=== PATIENT | female | born 1950 | race Caucasian/White ===

== ENCOUNTER → 2018-03-26 | Outpatient (CLI) | payer BC, MEDICARE ==
[~2018-03-26] MED LIST: ACET500 PO; ALPR1 PO; ASCO250CH PO; CETI5 PO; FERR325 PO; LEVSOD100 PO; OMEP20ER PO; OXYC5 PO; PROM25 PO; SENNA PO; STOMACH PILL
== END | disposition home or self-care (01) ==
LOC: LAB 09:47 → LAB FUT 03-24 08:40
DX: E78.5 Hyperlipidemia, unspecified (principal); R10.9 Unspecified abdominal pain; Z20.828 Contact with and (suspected) exposure to other viral communicable diseases
CPT/HCPCS: 87338

== ENCOUNTER 2020-12-27 07:14 | Day surgery (SDC) | payer MEDICARE, BC ==
[2021-01-07] MEDS ORDERED: CITA20 PO (09:37)
[2021-01-07] MEDS ORDERED: DICL75ER PO (09:38)
[2021-01-07] MEDS ORDERED: MELO7.5 PO (09:38)
[2021-01-07] MEDS ORDERED: LOSARTAN-HCTZ1 EAC5 PO (09:38)
[2021-01-07] MEDS ORDERED: OXYC5 PO (09:38)
[2021-01-07] MEDS ORDERED: PANT40 PO (09:39)
== END 2020-12-27 23:50 | disposition home or self-care (01) ==
LOC: MOI US 07:14
DX: C50.812 Malignant neoplasm of overlapping sites of left female breast (principal); Z17.0 Estrogen receptor positive status [ER+]
CPT/HCPCS: 19083; 77065; 88305; 88360; A4648

== ENCOUNTER 2021-01-06 07:39 | Day surgery (SDC) | payer MEDICARE, BC ==
[2021-01-07] MEDS ORDERED: CITA20 PO (09:37)
[2021-01-07] MEDS ORDERED: LOSARTAN-HCTZ1 EAC5 PO (09:38)
[2021-01-07] MEDS ORDERED: OXYC5 PO (09:38)
[2021-01-07] MEDS ORDERED: DICL75ER PO (09:38)
[2021-01-07] MEDS ORDERED: MELO7.5 PO (09:38)
[2021-01-07] MEDS ORDERED: PANT40 PO (09:39)
== END 2021-01-06 22:58 | disposition home or self-care (01) ==
LOC: MOI MAM 07:39
DX: C50.412 Malignant neoplasm of upper-outer quadrant of left female breast (principal); Z17.0 Estrogen receptor positive status [ER+]
CPT/HCPCS: 19285; 77065; A4648

== ENCOUNTER 2021-01-09 09:18 | Day surgery (SDC) | payer MEDICARE, BC ==
[~2021-01-09] VITALS: Ht 175.3 cm; Wt 105.0 kg
[~2021-01-09 09:18] MED LIST changes: +CITA20 PO; +DICL75ER PO; +LOSARTAN-HCTZ1 EAC5 PO; +MELO7.5 PO; +PANT40 PO
--- NOTE | 2021-01-09 11:01 | NUR ---
Ambulatory in Day Surgery Surgical site prepped with 2% Chlorhexidine cloth wipe. History, Chart, Medications and Allergies reviewed before start of procedure.Lungs clear T/O to Auscultation. Patient confirms NPO status and agrees with scheduled surgery. Patient reports completing Chlorhexadine shower X2 prior to admission to hospital. ALL BELONINGS PLACED UNDER THE BED.PT TOLERATED GETTING READY WITH SURGERY. PROVIDED CALM ENVIRONMENT.
--- NOTE | 2021-01-09 14:25 | NUR ---
REPORT FROM JAVAD BULLOCK RN. Dressing to procedure site clean, dry, intact with no visible drainage, swelling, erythema or bruising noted. GAVE ONE PAIN PILL AFTER TOLERATING PO INTAKE.
--- NOTE | 2021-01-09 16:24 | NUR ---
PT RECEIVED A TOTAL OF 2 PAIN PILLS AND ANTI NAUSEA MEDS. CONTINUED TO PRACTICE DBC AND WEAN OFF THE 02. Dressing to procedure site clean, dry, intact with no visible drainage, swelling, erythema or bruising noted. Discharge instructions reviewed with patient. Patient verbalizes understanding. Copy given to patient to take home. Patient States Post-Procedure ride home has been arranged. Discharged via wheelchair to private car for ride home. ALL BELONINGS RETURNED TO PATIENT. UP WITH A STEADY GAIT.
== END 2021-01-09 23:07 | disposition home or self-care (01) ==
LOC: ORSCMMR 09:18 → NM 09:18 → ORSCMMR 09:19 → NM 10:00
PROVIDERS: Surgery
PROC: 07B60ZX Excision of Left Axillary Lymphatic, Open Approach, Diagnostic (ICD-10-PCS; principal; 2021-01-09 11:00)
PROC: 0HBU0ZZ Excision of Left Breast, Open Approach (ICD-10-PCS; principal; 2021-01-09 11:00)
DX: C50.412 Malignant neoplasm of upper-outer quadrant of left female breast (principal); Z17.0 Estrogen receptor positive status [ER+]; D36.0 Benign neoplasm of lymph nodes; I10 Essential (primary) hypertension; E03.9 Hypothyroidism, unspecified; K21.9 Gastro-esophageal reflux disease without esophagitis; Z79.899 Other long term (current) drug therapy
CPT/HCPCS: 38792; 76098; 88305; 88307; 88342; A9270; A9520; J0690; J1100; J2370; J2405; J2704; J2765; J3010; J7120; Q9968